=== PATIENT | male | born 1995 | race Two or more races ===

== ENCOUNTER 2017-09-24 01:29 | Emergency (ER) | payer BC ==
[~2017-09-24] VITALS: Ht 180.3 cm; Wt 112.5 kg
[2017-09-24 01:51] VITALS: BP 151/93
[2017-09-24 02:11] LABS: Monocytes # (auto) 0.5 uL; White Blood Cell 8.4 10^3/uL (4.4-10.8)
[2017-09-24 02:13] LABS: Basophils # (auto) 0.1 uL; Basophils % (auto) 0.9 % (0.0-2.0); Eosinophils # (auto) 0.2 uL; Eosinophils % (auto) 2.1 % (0.0-7.0); Hematocrit 44.1 % (41.0-53.0); Hemoglobin 15.7 g/dL (13.5-17.5); Lymphocytes # (auto) 2.6 uL; Lymphocytes % (auto) 30.9 % (10.0-50.0); Mean Corpuscular Hgb Conc. 35.6 g/dL (32.0-36.0); Mean Corpuscular Volume 90.1 fL (80.0-100.0); Mean Platelet Volume 7.5 fL (6.9-10.8); Monocytes % (auto) 6.3 % (0.0-12.0); Neutrophils % (auto) 59.8 % (37.0-80.0); Nucleated Red Blood Cells % 0.1 %; Platelet Count (auto) 248 10^3/uL (140-450); Red Cell Distribution Width 13.5 % (11.8-14.3)
[2017-09-24 02:46] LABS: Albumin 3.5 g/dL (3.4-5.0); BUN/Creatinine Ratio 13.8; Bilirubin, Total 0.3 mg/dL (0.2-1.0); Calcium 7.6 mg/dL (8.5-10.1); Potassium 3.6 mmol/L (3.5-5.1); Total Protein 7.8 g/dL (6.4-8.2)
== END 2017-09-24 02:59 | disposition left against medical advice (07) ==
LOC: ER 01:31
DX: R10.9 Unspecified abdominal pain (principal); Z53.21 Procedure and treatment not carried out due to patient leaving prior to being seen by health care provider
CPT/HCPCS: 36415; 74176; 80053; 80320; 82150; 83690; 85025